=== PATIENT | male | born 1980 | race African-American/Black ===

== ENCOUNTER 2021-07-04 17:10 | Emergency (ER) | payer MEDICAID ==
[~2021-07-04] VITALS: Ht 182.9 cm; Wt 100.0 kg
[2021-07-04] MEDS ORDERED: LORAZEPAM 1MG TABLET PO ONE (18:00)
[2021-07-04 18:45] LABS: CHLORIDE 107 mEq/L (98-107)
[2021-07-04 18:48] LABS: BASOPHILS % 0.2 % (0.0-2.0); EOSINOPHILS % 1.2 % (0.0-5.0); HEMATOCRIT. 44.5 % (42.0-52.0); HEMOGLOBIN. 14.4 g/dL (14.0-18.0); LYMPHOCYTES % 14.6 % (20.0-50.0); MEAN CORPUSCULAR HEMOGLOBIN 31.4 pg (28.0-32.0); MEAN CORPUSCULAR VOLUME 96.7 fL (80.0-94.0); MEAN PLATELET VOLUME 7.6 fl (7.4-10.4); MONOCYTES % 6.5 % (2.0-8.0); NEUTROPHILS % 77.5 % (40.0-76.0); PLATELET 253 x1000/uL (130-400); RED CELL DISTRIBUTION WIDTH 13.1 % (11.6-14.6)
[2021-07-04 23:17] VITALS: BP 125/80
== END 2021-07-04 23:16 | disposition home or self-care (01) ==
LOC: ER 17:10
DX: R00.2 Palpitations (principal); F14.10 Cocaine abuse, uncomplicated
CPT/HCPCS: 36415; 71045; 80053; 83880; 84484; 85025; 93005; 99285